=== PATIENT | male | born 1995 ===

== ENCOUNTER 2024-09-05 11:21 | Outpatient (AMB) | payer OTHER, SELFPAY ==
--- NOTE | 2024-09-05 11:27 | MHC.PC.OV ---
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 He notes that he does not recall name or practice of his former PCP and does not recall his last visit. The patient is a 29-year-old male presenting with chronic pain localized to the right lower back and right waistline, under the abdomen, persisting for approximately one month. Historically, this pain has been present intermittently for several years, with periods of remission lasting about three months. No significant abnormalities were revealed by a prior CT scan. The pain does not appear to be connected to acute injuries and feels alleviated by physical activity, although current limitations due to lifestyle changes with a have reduced exercise frequency. The patient reports that prior interventions with muscle relaxers were ineffective. The symptoms have had a chronic nature, with an exacerbation over the past month. He has PMH of hypothyroidism, depression, chronic pain, nearsightedness, and childhood asthma. Surgical History - None FMH - Mom: HLD - Dad: Alcohol abuse, HTN, HLD, MDD - MGF: Thyroid disorder - PGM: Unknown cancer Social History - Currently undergoing life changes with a new baby, impacting sleep and exercise routine. - Diet described as not particularly healthy. - Alcohol consumption is reported as consuming a beer approximately once a week. - No history of smoking or recreational drug use. - Engages in therapy for mental health support, attending sessions once a week. - Regularly utilizes hand lotion, attributed to frequent hand washing related to parenting duties. - Despite being nearsighted, the last eye exam was approximately five years ago. Health Maintenance - Last dental visit within a week. - Tetanus vaccination discussed, likely overdue, with plans for administration as necessary. - Influenza vaccination discussed but not previously received for the current season; plan to administer. - Last eye exam was about 5 years ago. Referred for routine eye examination due to overdue status and history of being nearsighted. - Suggested dietary and nutritional consultation for weight management. - Encouraged increased physical activity. [facility] Medical History (Updated 09/05/24 @ 12:31 by Miguelina dAen CNP) Depression H/O thyroid disease Asthma Family History (Updated 09/05/24 @ 12:55 by Miriam Gray) Paternal Uncle Alcohol abuse Father Mental illness in member of household High blood pressure High cholesterol MDD (major depressive disorder) Diabetes Mother High cholesterol Maternal Grandfather Thyroid disorder Paternal Grandmother Cancer Social History Housing: Apartment Patient Tobacco Use Status: Never used Tobacco e-Cigarette/Vaping Use: Never Used Second Hand Smoke Exposure: No service: No Current occupational status: employed 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 1. Little interest or pleasure in doing things: several days 2. Feeling down, depressed, or hopeless: several days 3. Trouble falling or staying asleep, or sleeping too much: several days 4. Feeling tired or having little energy: several days 5. Poor appetite or overeating: nearly every day 6. Feeling bad about yourself - or that you are a failure or have let yourself or your family down: more than half the days 7. Trouble concentrating on things, such as reading the newspaper or watching television: several days 8. Moving or speaking so slowly that other people could have noticed. Or the opposite - being so fidgety or restless that you have been moving around a lot more than usual: not at all 9. Thoughts that you would be better off or of hurting yourself in some way: not at all Total score: 10 Depression Screening Interpretation: Positive Depression Screening Follow-up: Existing condition and In treatment Depression Screening Done: Yes 83755 - PHQ-9 Billing: Yes Source: Developed by Drs. Tian Garza, Adelita Olmedo, Frank Haile and colleagues, with an educational addi from [employer]. Thrive Questionnaire Date Thrive assessed: 09/05/24 I am a: Patient What is your living situation today?: I have a steady place to live Within the past 12 months, did the food you bought not last and you didn't have the money to get more?: Never true Within the past 12 months, did you worry whether your food would run out before you got money to buy more?: Never true Do you have trouble paying for medicines?: No Do you have trouble getting transportation to medical appointments?: No Do you have trouble paying your heating and electricity bill?: No Do you have trouble taking care of your child, family member or friend?: No Do you have trouble with day-to-day activities such as bathing, preparing meals, shopping, managing finances, etc.?: No Are you currently unemployed and looking for a job?: No Are you interested in more education?: Yes Please select the resources that you would like help with: None Currently or been in a relationship where the following occur: No concerns reported THRIVE Score: 0 AUDIT C Alcohol Use Questionnaire (AUDIT-C) 1. How often do you have a drink containing alcohol?: 2-4 times a month 2. How many drinks containing alcohol do you have on a typical day when you are drinking?: 1 or 2 3. How often do you have six or more drinks on one occasion?: Never Total Score: 2 Score Reviewed/Action Taken: Yes ONEIL-7 AMB Questionnaire ONEIL-7 Date ONEIL - 7 assessed: 09/05/24 Feeling nervous, anxious, or on edge: 1 = Several days Not being able to stop or control worryin = Several days Worrying too much about different things: 1 = Several days Trouble relaxin = Several days Being so restless that it is hard to sit still: 0 = Not at all Becoming easily annoyed or irritable: 1 = Several days Feeling afraid as if something awful might happen: 2 = More than half the days Total ONEIL-7 score (0-4 normal; 5-9 mild; 10-14 moderate; 15-21 severe): 7 Source: Developed by Drs. Tian Garza, Adelita Olmedo, Frank Haile and colleagues, with an educational addi from [employer]. ONEIL-7 Assessment Billing ONEIL-7 Assessment Tool: ONEIL-7 Assessment 56354 ACT Questionnaire In the past 4 weeks, how much of the time did your asthma keep you from getting as much done at work, school or at home?: None of the time During the past 4 weeks, how often have you had shortness of breath?: 1-2 times a week During the past 4 weeks, how often did your asthma symptoms wake you up at night or earlier than usual in the morning?: Not at all During the past 4 weeks, how often have you had to use your rescue inhaler or nebulizer medication?: Not at all How would you rate your asthma control during the past 4 weeks?: Completely controlled Score: 24 Review of Systems Const Details: Denies chills, Denies fatigue, Denies fever(s), Denies headache(s) and Denies weakness HEENT Denies change in vision, Denies dizziness, Denies headache(s), Denies hearing loss, Denies nasal congestion, Denies sinus pain, Denies sinus pressure and Denies sore throat Card Denies chest pain, Denies lightheadedness, Denies dyspnea and Denies other (palpitations) Resp Denies cough, Denies dyspnea and Denies wheezing GI Denies abdominal pain, Denies melena, Denies hematochezia, Denies change in bowel habits, Denies dyspepsia and Denies nausea Denies hematuria and Denies dysuria Musc Reports persistent localized chronic pain in the right lower back and waistline .Denies abnormal gait, Denies numbness and Denies tingling Skin/Breast Reports severe dry skin with itchiness, primarily affecting the hands, Denies rash, Denies unusual bruising and Denies wounds Neuro Denies abnormal gait, Denies dizziness, Denies headache(s), Denies memory loss, Denies numbness, Denies Sensory deficit (Neuro), Denies tingling and Denies weakness Psych Denies anxiety, Denies depression and Denies memory loss Endo Denies cold intolerance, Denies fatigue, Denies heat intolerance, Denies polydipsia and Denies polyuria Pastor/Lymph Denies easy bleeding and Denies easy bruising Aller/Immun Denies wheezing Physical exam (Primary Care) Vital Signs: Last Vital Signs Temp 97.3 F 09/05/24 11:35 Pulse 63 09/05/24 11:35 Resp 16 09/05/24 11:35 BP 135/64 09/05/24 11:35 Pulse Ox 98 09/05/24 11:35 Oxygen Delivery Method Room Air 09/05/24 11:35 BMI result Body Mass Index 34.2 Tobacco/Smoking Status: Tobacco use Status Tobacco use date assessed 09/05/24 09/05/24 11:44 Patient Tobacco Use Status Never used Tobacco 09/05/24 11:44 e-Cigarette/Vaping Use Never Used 09/05/24 11:44 PHQ-9: PHQ-9 Score PHQ-9: Total score 10 09/05/24 12:56 Depression Screening Interpretation: Positive Depression Screening Follow-up: Existing condition and In treatment Thrive Assessment: Date of Thrive Assessment Date Thrive assessed 09/05/24 09/05/24 11:30 Currently or been in a relationship where the following occur: No concerns reported Const Other: General: no acute distress, well developed, alert and awake Nutritional Appearance: well nourished Orientation/consciousness: patient oriented x3 HENMT Head: Yes normocephalic and Yes atraumatic Ears: hearing grossly normal bilaterally and TM's normal bilaterally General nose exam: Normal external nose present and Normal nares present Mouth: Normal oral and palatal mucosa present and moist mucous membranes Teeth and gingiva: dentition normal Throat: Yes oropharynx normal Eyes Pupils: Equal, round and reactive pupils present and Pupil accommodation reflex normal EOM: EOMs intact bilaterally Neck Neck: Yes normal visual inspection, Yes no lymphadenopathy and Yes trachea midline Thyroid: Thyroid normal Carotids: no bruits Lymphatic: no lymphadenopathy noted Chest Chest palpation & inspection: normal inspection of the chest Resp Effort & Inspection: normal respiratory effort Auscultation: clear to auscultation bilaterally Cardio Rate: regular rate Rhythm: regular rhythm Heart sounds: S1 normal heart sound present, S2 normal heart sound present, no gallops, no murmurs and no rubs Bruits: no abdominal aortic bruits and no carotid bruits GI Palpation (GI): No Abdominal aortic bruit present, Soft to palpation, nontender, No hepatosplenomegaly present and No Rebound tenderness present Auscultation: normal bowel sounds General: Yes no CVA tenderness Back/Spine/Pelvis Back: no CVA tenderness Cervical Spine: cervical ROM normal and No Cervical spine tenderness Thoracic/Lumbar Spine: thoraco-lumbar ROM normal, No pain with thoraco-lumbar ROM, No thoracic spinal tenderness and No lumbar spinal tenderness General: No tenderness noted on palpation of right lower back and abdomen, absence of hernia, and no reported pain upon examination maneuvers. Skin General: warm and dry. Normal skin color. Normal skin turgor Lesions: no lesions Rashes: no rashes Trauma: no lacerations or abrasions Wounds: no wounds Nails: normal Neuro General: patient oriented x3, gait normal and CN's II-XI intact bilaterally Cranial nerves: Yes Equal, round and reactive pupils present Cognition (Neuro): normal cognition Gait exam (Neuro): Normal gait present Motor exam (neuro): 5/5 motor strength present throughout Sensory Exam: No Sensory deficit (Neuro) Deep tendon reflexes (DTR's): Right patellar reflex intensity grade: 2+ and Left patellar reflex intensity grade: 2+ Extrem General: Yes normal to inspection, No edema and No calf tenderness Psych Appearance: grossly normal Affect: normal affect Attitude: cooperative Thought process: Normal thought process present Office Procedures Flu Questionnaire Does the patient have a severe egg allergy?: No Does the patient have severe life threatening allergies?: No Does the patient have a fever or illness today?: No Has the patient ever had Guillain-[place] Syndrome?: No Has the patient ever had any past reaction to a flu shot?: Yes Comment: Patient stated his last flu shot gave him the flu and he had to be hospitalized. Immunizations Fluarix Triv [id number] (PF) 45 mcg (15 mcg x 3)/0.5 mL IM syringe Performing Provider: Miguelina Aden CNP Performing Location: [facility] Administered by: Naomi Hernandez RN on 09/05/24 12:31 Dose Route Admin Location Dispensed Lot Number Expiration Date [facility] Chicken Dresser 0.5 mL IM Right Deltoid 0.5 mL [id number] 04/09/25 [id number] [employer] VIS Given Date VIS Provided VIS Publication Date 09/05/24 Single Vaccine 21 Eligibility Eligibility Date Funding Source Not [facility] Eligible 09/05/24 Private Boostrix Tdap 2.5 Lf unit-8 mcg-5 Lf/0.5 mL intramuscular syringe Performing Provider: Miguelina Aden CNP Performing Location: [facility] Administered by: Naomi Hernandez RN on 09/05/24 12:31 Dose Route Admin Location Dispensed Lot Number Expiration Date [employer] Chicken Dresser 0.5 mL IM Left Deltoid 0.5 mL [id number] 07/08/25 [id number] [employer] VIS Given Date VIS Provided VIS Publication Date 09/05/24 Single Vaccine 21 Eligibility Eligibility Date Funding Source Not [facility] Eligible 09/05/24 Private Coding Level of Care Code New Pt Level 3 (45962) New Pt Prev Care 18-39yr(04883 Diagnoses Normal physical examination, routine Z00.00 Chronic pain G89.29 Depression F32.A Eye exam, routine Z01.00 Obesity (BMI 30-39.9) E66.9 Hypothyroidism E03.9 Dry skin L85.3 Preventative health care Z00.00 Laboratory tests ordered as part of a complete physical exam (CPE) Z00.00 Additional Codes ONEIL-7 Assessment Billing - ONEIL-7 Assessment Tool: ONEIL-7 Assessment 48103 ([id number]) PHQ-9 - 71168 - PHQ-9 Billing: Yes ([id number]) Assessment & Plan Assessment & Plan (1) Normal physical examination, routine: Code(s): Z00.00 - Encounter for general adult medical examination without abnormal findings Category: Medical Plan: No significant functional limitation noted. (2) Chronic pain: Code(s): G89.29 - Other chronic pain Category: Medical Plan: Advise use of yiee-eme-lhgkkgb analgesics such as acetaminophen 650 mg or ibuprofen 600 mg every eight hours as needed. Encouraged warm or cold compresses. If symptoms persist or worsen, consider further diagnostic imaging or referral. (3) Depression: Code(s): F32.A - Depression, unspecified Category: Medical Plan: Never had pharmacotherapy for this and declines this treatment regimen. Continue routine therapy sessions as they appear effective. Monitor for any escalation in symptoms. (4) Eye exam, routine: Code(s): Z01.00 - Encounter for examination of eyes and vision without abnormal findings Category: Medical (5) Obesity (BMI 30-39.9): Code(s): E66.9 - Obesity, unspecified Category: Medical Plan: Healthy diet and routine exercise encouraged. Referred to dietitian. (6) Hypothyroidism: Code(s): E03.9 - Hypothyroidism, unspecified Category: Medical Plan: Continue current treatment regiment. Assess thyroid levels through upcoming lab work. (7) Dry skin: Code(s): L85.3 - Xerosis cutis Category: Medical Plan: Apply emollient-based lotion endorsed by the patient regularly, and utilize xixw-xor-dodmpuh hydrocortisone as needed for any exacerbation of dry and itchy symptoms to hands. (8) Preventative health care: Code(s): Z00.00 - Encounter for general adult medical examination without abnormal findings Category: Medical Plan: Administer tetanus booster and influenza vaccine as discussed. Follow up on eye health with recommended examination. (9) Laboratory tests ordered as part of a complete physical exam (CPE): Code(s): Z00.00 - Encounter for general adult medical examination without abnormal findings Category: Medical Plan: Fasting labs ordered as part of a complete physical exam. Advised to fast for at least 10 hours before getting labs drawn. May drink water Verbalized understanding and agreed with treatment plan. Plan During the consultation, we discussed the chronic nature of the patient's lower back and waistline pain, its alleviation through exercise, and the ineffectiveness of previous treatments, such as muscle relaxers. For management and symptomatic relief, I recommended using analgesics and incorporating physical activity as feasible. Pain management was tailored, considering previous evaluations and the lack of acute findings on the CT scan. We addressed the patient's mental health management, reinforcing the value of their routine therapy, and discussed potential interventions should symptoms change. Preventive vaccines were outlined, and the benefits of adherence were emphasized, particularly in light of overdue schedules. Referrals for dietary insight and ophthalmoscopic evaluations were planned, emphasizing their significance in the patient's comprehensive health upkeep. We discussed the implications of the patient's health status, suggesting appropriate lifestyle modifications for optimal health outcomes. Orders: Orders Influenza [id number] Immunization Today Z23 - Encounter for immunization TDaP Immunization Today Z23 - Encounter for immunization Complete Blood Count Auto Diff Today Z00.00 - Encounter for general adult medical examination without abnormal findings Comprehensive [place]. Panel Fast Today Z00.00 - Encounter for general adult medical examination without abnormal findings Lipid Panel Today Z00.00 - Encounter for general adult medical examination without abnormal findings TSH reflex Free T4 Today Z00.00 - Encounter for general adult medical examination without abnormal findings UA CC w/rflx Micro + Cult Today Z00.00 - Encounter for general adult medical examination without abnormal findings Referrals Nutrition/Dietitian Referral E66.9 - Obesity, unspecified Ophthalmology Referral Z01.00 - Encounter for examination of eyes and vision without abnormal findings Patient Instructions: - Take acetaminophen or ibuprofen as needed for pain relief, following package guidelines. - Apply lotion regularly to maintain skin hydration; use hydrocortisone for itching. - Schedule and attend the recommended eye examination. - Attend follow-up appointments to review lab results and reassess management plans. - Increase physical activity, as it helps alleviate your symptoms. - Adhere to therapy sessions and observe any changes in mental health symptoms. - Receive tetanus and influenza vaccinations. - Consider dietary consultation and incorporate healthier food choices. Patient was informed and verbally consented to the use of an ambient scribe for clinic note documentation during this visit.
[2024-09-05 11:35] VITALS: BP 135/64; PULSE 63; RESP 16; TEMP 36.3; O2SAT 98; BMI 34.2
== END 2024-09-05 12:30 | disposition home or self-care (01) ==
PROVIDERS: Visit Provider Nurse Practitioner Family
DX: Z00.00 Encounter for general adult medical examination without abnormal findings (principal); G89.29 Other chronic pain; F32.A Depression, unspecified; Z68.34 Body mass index [BMI] 34.0-34.9, adult; E66.9 Obesity, unspecified; E03.9 Hypothyroidism, unspecified; L85.3 Xerosis cutis

== ENCOUNTER → 2024-09-05 11:21 | Outpatient (BNVA) | payer OTHER, SELFPAY | PROVIDERS: Visit Provider Nurse Practitioner Family | DX: Z00.00 Encounter for general adult medical examination without abnormal findings (principal); Z23 Encounter for immunization; M54.50 Low back pain, unspecified; G89.29 Other chronic pain; F32.A Depression, unspecified; E66.9 Obesity, unspecified; E03.9 Hypothyroidism, unspecified; L85.3 Xerosis cutis | CPT/HCPCS: 90471; 90472; 90656; 90715; 96127; 96160 ==

== ENCOUNTER 2024-09-19 14:50 | Outpatient (REF) | payer OTHER, SELFPAY ==
[2024-09-19 17:41] LABS: MANUAL DIFF FLAG NO
[2024-09-19 17:43] LABS: Basophils Percent Auto 0.5 % (0-2); Eosinophils Absolute Auto 0.2 X10*3/uL (0.0-0.4); Hematocrit 41.7 % (42.0-52.0); Hemoglobin 14.7 g/dl (14.0-18.0); Imm Gran Abs Auto 0.02 X10*3/uL (0.00-0.03); Imm Gran Pct Auto 0.3 % (0.0-0.4); Lymphocytes Absolute Auto 1.7 X10*3/uL (1.2-4.9); Lymphocytes Percent Auto 28.4 % (20-40); Mean Corpuscular HGB Conc 35.3 g/dl (31.0-36.0); Mean Corpuscular Hemoglobin 28.2 pg (27.0-33.0); Monocytes Absolute Auto 0.5 X10*3/uL (0.1-1.2); Monocytes Percent Auto 7.6 % (2-11); Neutrophils Absolute Auto 3.6 x10*3/uL (2.0-8.3); Neutrophils Percent Auto 59.2 % (45-73); Platelet Count 270 X10*3/uL (160-400); Red Blood Count 5.21 X10*6/uL (4.60-5.80); Red Cell Distribution Width 12.1 % (11.0-16.0); White Blood Count 6.1 X10*3/uL (4.8-10.8)
[2024-09-19 18:05] LABS: Alanine Aminotransferase 46 U/L (0-40); Albumin Level 4.4 g/dL (3.5-5.0); Alkaline Phosphatase 63 U/L (39-117); Anion Gap 12 (12-20); Aspartate Amino Transferase 27 U/L (5-37); Bilirubin Total 0.4 mg/dL (0.0-1.0); Blood Urea Nitrogen 15 mg/dL (9-16); Calcium 9.3 mg/dL (8.4-10.2); Carbon Dioxide 28 mmol/L (22-29); Chloride 104 mmol/L (96-108); Cholesterol 197 mg/dL (<200); Estimated Glomerular Filt Rate > 60; Glucose Fasting 90 mg/dL (60-99); HDL Cholesterol 39 mg/dL (>40); LDL Cholesterol Calculated 138 mg/dL (<100); Potassium 4.1 mmol/L (3.3-5.1); Sodium 140 mmol/L (135-145); Total Protein 7.6 g/dL (6.5-8.0); Triglycerides 101 mg/dL (<150)
[2024-09-19 18:19] LABS: TSH reflex Free T4 3.87 uIU/mL (0.32-4.0)
[2024-09-19 18:21] LABS: Appearance Urine Clear; Color Urine Yellow; Glucose Urine UA Negative (Negative); Leukocyte Esterase Urine Negative (Negative); Nitrite Urine Negative (Negative); Urine Blood Negative (Negative); Urine Ketones Negative (Negative); Urine Protein Negative (Neg-Trace)
== END 2024-09-19 14:51 | disposition home or self-care (01) ==
LOC: HO.WFDLDS 14:50
PROVIDERS: Visit Provider Nurse Practitioner Family
DX: Z00.00 Encounter for general adult medical examination without abnormal findings (principal)
CPT/HCPCS: 36415; 80053; 80061; 81003; 84443; 85025

== ENCOUNTER → 2024-09-20 12:40 | Outpatient (AMB) | payer OTHER, SELFPAY ==
--- NOTE | 2024-09-20 12:37 | A.OFFPC_ITS ---
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 He admits to taking levothyroxine 88 mcg daily without adverse reactions. He offers no complaints and denies acute symptoms at this time. [facility] Medical History (Updated 09/20/24 @ 13:20 by Miguelina Aden CNP) Depression H/O thyroid disease Asthma Family History (Updated 09/05/24 @ 12:55 by Miriam Gray) Paternal Uncle Alcohol abuse Father Mental illness in member of household High blood pressure High cholesterol MDD (major depressive disorder) Diabetes Mother High cholesterol Maternal Grandfather Thyroid disorder Paternal Grandmother Cancer Social History Housing: Apartment Patient Tobacco Use Status: Never used Tobacco e-Cigarette/Vaping Use: Never Used Second Hand Smoke Exposure: No service: No Current occupational status: employed 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 Tian Garza, Adelita Olmedo, Frank Haile and colleagues, with an educational addi from [employer]. Review of Systems Const Details: Const Denies chills, Denies fatigue, Denies fever(s), Denies headache(s) and Denies weakness ENT Denies dizziness and Denies headache(s) Card Denies chest pain, Denies lightheadedness, Denies dyspnea and Denies other (Palpitations) Resp Denies cough, Denies dyspnea, Denies wheezing and Denies other ( shortness of breath) GI Denies abdominal pain, Denies melena, Denies hematochezia, Denies change in bowel habits, Denies dyspepsia and Denies nausea Denies hematuria and Denies dysuria Musc Denies abnormal gait, Denies myalgias, Denies arthralgias, Denies numbness and Denies tingling Skin/Breast Denies rash, Denies unusual bruising and Denies wounds Neuro Denies abnormal gait, Denies dizziness, Denies headache(s), Denies memory loss, Denies numbness, Denies Sensory deficit (Neuro), Denies tingling and Denies weakness Psych Denies anxiety, Denies depression, Denies memory loss Endo Denies cold intolerance, Denies fatigue, Denies heat intolerance, Denies polydipsia and Denies polyuria Aller/Immun Denies wheezing Physical exam (Primary Care) Tobacco/Smoking Status: Tobacco use Status Tobacco use date assessed 09/05/24 12 12:39 Patient Tobacco Use Status Never used Tobacco 09/20/24 12:39 e-Cigarette/Vaping Use Never Used 09/20/24 12:39 Thrive Assessment: Date of Thrive Assessment Date Thrive assessed 09/05/24 12 12:39 Const Other: Telehealth visit. No physical exam. Telehealth Telehealth Telehealth Platform: Telephone Location of provider rendering services: practice address Location of patient: address on file Patient Identification confirmed using: Name, : Yes Telehealth method: voice only Patient verbally consented to treatment: Yes Patient verbally consented to billing insurance company: Yes Patient informed of any privacy concerns related to visit: Yes Coding Level of Care Code Tele Est Pt Level 3 (03275) Diagnoses Dyslipidemia E78.5 Elevated ALT measurement R74.01 Hypothyroidism E03.9 Time Spent (min) 15 Assessment & Plan Assessment & Plan (1) Dyslipidemia: Code(s): E78.5 - Hyperlipidemia, unspecified Category: Medical Plan: Recent lab results reviewed with the patient. LDL is slightly elevated, 138; HDL is slightly low, 39. Advised to limit foods high in saturated fat and avoid foods high in trans fat. Routine exercise encouraged. Will recheck lipid panel levels; advised to fast for 10-12 hours, may drink water, and get blood work done before his next visit. Follow-up in 3 months or sooner with symptoms or concerns. Verbalized understanding and agreed with the treatment plan. (2) Elevated ALT measurement: Code(s): R74.01 - Elevation of levels of liver transaminase levels Category: Medical Plan: Recent ALT level was slightly elevated, 46. Likely fatty liver deposit secondary to obesity. Weight management, including healthy diet and routine exercise encouraged. Will recheck lipid panel and make changes as needed. Verbalized understanding and agreed with the treatment plan. (3) Hypothyroidism: Code(s): E03.9 - Hypothyroidism, unspecified Category: Medical Plan: Recent TSH level was normal. Continue current treatment regimen. Levothyroxine refill sent to the pharmacy. Will recheck TSH/T4 levels in 3 months. Verbalized understanding and agreed with the plan. Orders: Orders Lipid Panel 3 Months E78.5 - Hyperlipidemia, unspecified Liver Panel Today R74.01 - Elevation of levels of liver transaminase levels TSH reflex Free T4 3 Months E03.9 - Hypothyroidism, unspecified Medications: Changed From levothyroxine 88 mcg PO DAILY To levothyroxine 88 mcg PO DAILY 30 days 30 tabs 3RF
== END ==
LOC: HO.HMCFM 12:40
PROVIDERS: PCP Nurse Practitioner Family; Visit Provider Nurse Practitioner Family
DX: E78.5 Hyperlipidemia, unspecified (principal); R74.01 Elevation of levels of liver transaminase levels; E03.9 Hypothyroidism, unspecified

== ENCOUNTER 2025-03-19 12:48 | Outpatient (REF) | payer OTHER, SELFPAY ==
[2025-03-19 15:10] LABS: Alanine Aminotransferase 44 U/L (0-40); Albumin Level 4.6 g/dL (3.5-5.0); Alkaline Phosphatase 61 U/L (39-117); Aspartate Amino Transferase 28 U/L (5-37); Bilirubin Direct 0.2 mg/dL (0.0-0.5); Bilirubin Total 0.7 mg/dL (0.0-1.0); Cholesterol 194 mg/dL (<200); HDL Cholesterol 35 mg/dL (>40); LDL Cholesterol Calculated 129 mg/dL (<100); Total Protein 7.3 g/dL (6.5-8.0); Triglycerides 154 mg/dL (<150)
== END 2025-03-19 12:49 | disposition home or self-care (01) ==
LOC: HO.WFDLDS 12:48
PROVIDERS: Visit Provider Nurse Practitioner Family
DX: E03.9 Hypothyroidism, unspecified (principal); R74.01 Elevation of levels of liver transaminase levels; E78.5 Hyperlipidemia, unspecified
CPT/HCPCS: 36415; 80061; 80076; 84443

== ENCOUNTER 2025-03-20 11:47 | Outpatient (AMB) | payer OTHER, SELFPAY ==
--- NOTE | 2025-03-20 11:49 | A.OFFPC_ITS ---
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 Allergies No Known Allergies Allergy (Verified 03/20/25 11:57) Medication List - Last Reconciled 03/20/25 by Miguelina Aden CNP levothyroxine 88 mcg PO DAILY 30 days Tobacco use date assessed: 03/20/25 Dental Screening Dental Screen Date: 03/20/25 Did you have a dental visit in the last 12 months?: Yes Did you have a dental problem in the last 6 months where you did not have access to dental care?: No Was dental information given to patient?: Patient has dentist HPI HPI Comments History of Present Illness Details 30-year-old male presents for dyslipidem ia, hypothyroidism, and elevated ALT follow-up. He admits to taking levothyroxine as prescribed without adverse reactions. He notes that he has been consuming significant amount of cheese. He has not been exercising. He reports experiencing anxiety and depressive symptoms which has progressively worsened in the past 6 months. He states that his symptoms started after his 9-month-old daughter's mother developed depression and not able to be alone with the baby. 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 He does not have time to do things for himself, including exercise. He denies SI/HI. He is not interested in psychotropic medications for his symptoms. He had psychotherapy in the past and requests therapy at this time. [facility] Medical History (Updated 03/20/25 @ 12:16 by Miguelina Aden CNP) Depression H/O thyroid disease Asthma Family History (Updated 09/05/24 @ 12:55 by Miriam Gray MA) Paternal Uncle Alcohol abuse Father Mental illness in member of household High blood pressure High cholesterol MDD (major depressive disorder) Diabetes Mother High cholesterol Maternal Grandfather Thyroid disorder Paternal Grandmother Cancer Social History Housing: Apartment Patient Tobacco Use Status: Never used Tobacco e-Cigarette/Vaping Use: Never Used Second Hand Smoke Exposure: No service: No Current occupational status: employed 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 1. Little interest or pleasure in doing things: several days 2. Feeling down, depressed, or hopeless: several days 3. Trouble falling or staying asleep, or sleeping too much: nearly every day 4. Feeling tired or having little energy: several days 5. Poor appetite or overeating: nearly every day 6. Feeling bad about yourself - or that you are a failure or have let yourself or your family down: nearly every day 7. Trouble concentrating on things, such as reading the newspaper or watching television: several days 8. Moving or speaking so slowly that other people could have noticed. Or the opposite - being so fidgety or restless that you have been moving around a lot more than usual: not at all 9. Thoughts that you would be better off or of hurting yourself in some way: not at all Total score: 13 Depression Screening Interpretation: Positive Depression Screening Follow-up: Community Mental Health Worker F/U Depression Screening Done: Yes Source: Developed by Drs. Tian Garza, Adelita Olmedo, Frank Haile and colleagues, with an educational addi from [employer]. Thrive Questionnaire Date Thrive assessed: 09/05/24 I am a: Patient What is your living situation today?: I have a steady place to live Within the past 12 months, did the food you bought not last and you didn't have the money to get more?: Never true Within the past 12 months, did you worry whether your food would run out before you got money to buy more?: Never true Do you have trouble paying for medicines?: No Do you have trouble getting transportation to medical appointments?: No Do you have trouble paying your heating and electricity bill?: No Do you have trouble taking care of your child, family member or friend?: No Do you have trouble with day-to-day activities such as bathing, preparing meals, shopping, managing finances, etc.?: No Are you currently unemployed and looking for a job?: I choose not to answer this question Are you interested in more education?: No Please select the resources that you would like help with: None Currently or been in a relationship where the following occur: I choose not to answer THRIVE Score: 0 AUDIT C Alcohol Use Questionnaire (AUDIT-C) 1. How often do you have a drink containing alcohol?: 2-4 times a month 2. How many drinks containing alcohol do you have on a typical day when you are drinking?: 1 or 2 3. How often do you have six or more drinks on one occasion?: Never Total Score: 2 ONEIL-7 AMB Questionnaire ONEIL-7 Date ONEIL - 7 assessed: 09/05/24 Feeling nervous, anxious, or on edge: 3 = Nearly every day Not being able to stop or control worryin = Nearly every day Worrying too much about different things: 2 = More than half the days Trouble relaxin = Several days Being so restless that it is hard to sit still: 0 = Not at all Becoming easily annoyed or irritable: 1 = Several days Feeling afraid as if something awful might happen: 2 = More than half the days Total ONEIL-7 score (0-4 normal; 5-9 mild; 10-14 moderate; 15-21 severe): 12 Source: Developed by Drs. Tian Garza, Adelita Olmedo, Frank Haile and colleagues, with an educational addi from [employer]. Review of Systems Const Details: Const Denies chills, Denies fatigue, Denies fever(s), Denies headache(s) and Denies weakness ENT Denies dizziness and Denies headache(s) Card Denies chest pain, Denies lightheadedness, Denies dyspnea and Denies other (Palpitations) Resp Denies cough, Denies dyspnea, Denies wheezing and Denies other ( shortness of breath) GI Denies abdominal pain, Denies melena, Denies hematochezia, Denies change in bowel habits, Denies dyspepsia and Denies nausea Denies hematuria and Denies dysuria Musc Denies abnormal gait, Denies myalgias, Denies arthralgias, Denies numbness and Denies tingling Skin/Breast Denies rash, Denies unusual bruising and Denies wounds Neuro Denies abnormal gait, Denies dizziness, Denies headache(s), Denies memory loss, Denies numbness, Denies Sensory deficit (Neuro), Denies tingling and Denies weakness Psych Denies anxiety, Denies depression, Denies memory loss Endo Denies cold intolerance, Denies fatigue, Denies heat intolerance, Denies polydipsia and Denies polyuria Aller/Immun Denies wheezing Physical exam (Primary Care) Tobacco/Smoking Status: Tobacco use Status Tobacco use date assessed 09/05/24 09/20/24 12:39 Patient Tobacco Use Status Never used Tobacco 09/20/24 12:39 e-Cigarette/Vaping Use Never Used 09/20/24 12:39 Depression Screening Interpretation: Positive Depression Screening Follow-up: Community Mental Health Worker F/U Thrive Assessment: Date of Thrive Assessment Date Thrive assessed 09/05/24 09/20/24 12:39 Currently or been in a relationship where the following occur: I choose not to answer Const Other: General: no acute distress and well developed Nutritional Appearance: well nourished Orientation/consciousness: patient oriented x3 HENMT Head: Yes normocephalic and Yes atraumatic Eyes General: appearance normal, both eyes and all related structures Pupils: Equal, round and reactive pupils present EOM: EOMs intact bilaterally Resp Effort & Inspection: normal respiratory effort Auscultation: clear to auscultation bilaterally Cardio Rate: regular rate Rhythm: regular rhythm Heart sounds: S1 normal heart sound present, S2 normal heart sound present, no gallops, no murmurs and no rubs GI Palpation (GI): No Abdominal aortic bruit present, Soft to palpation, nontender, No hepatosplenomegaly present and No Rebound tenderness present Auscultation: normal bowel sounds General: Yes no CVA tenderness Back/Spine/Pelvis Back: no CVA tenderness Cervical Spine: cervical ROM normal and No Cervical spine tenderness Thoracic/Lumbar Spine: thoraco-lumbar ROM normal, No pain with thoraco-lumbar ROM, No thoracic spinal tenderness and No lumbar spinal tenderness Extrem General: Yes normal to inspection, No edema and No calf tenderness Skin General: warm and dry. Normal skin color. Normal skin turgor Neuro General: patient oriented x3, gait normal and no focal neuro deficit Cranial nerves: Yes Equal, round and reactive pupils present Cognition (Neuro): normal cognition Gait exam (Neuro): Normal gait present Sensory Exam: No Sensory deficit (Neuro) Psych Appearance: grossly normal Affect: normal affect Attitude: cooperative Thought process: Normal thought process present Coding Level of Care Code Est Pt Level 4 (77758) Complex EM visit Add On G2211 Diagnoses Hypothyroidism E03.9 Dyslipidemia E78.5 Elevated ALT measurement R74.01 Adjustment disorder F43.20 Assessment & Plan Assessment & Plan (1) Hypothyroidism: Code(s): E03.9 - Hypothyroidism, unspecified Category: Medical Plan: Recent TSH level is normal. Continue to take levothyroxine 88 mcg daily. Will monitor TSH/T4 every 6-12 months. Verbalized understanding and agreed with the plan. (2) Dyslipidemia: Code(s): E78.5 - Hyperlipidemia, unspecified Category: Medical Plan: Recent triglyceride level is slightly elevated, 154 from 101, LDL level is slightly elevated, 129 from 138, HDL level is low, 35 from 39. Advised to limit foods high in saturated fat and avoid foods high in trans fat. Routine exercise encouraged. Fast for 10-12 hours, may drink water, perform lipid panel blood work 2-3 days before next visit. Follow-up for a telehealth visit in 2 months. Return sooner with symptoms or concerns. Verbalized understanding and agreed with the plan. (3) Elevated ALT measurement: Code(s): R74.01 - Elevation of levels of liver transaminase levels Category: Medical Plan: Recent ALT level is slightly elevated, 44 from 46. Likely fatty liver deposits. Weight loss and healthy diet, including low-fat encouraged. Will monitor liver panel periodically or if presents with related symptoms or concerns. Verbalized understanding and agreed with the plan. (4) Adjustment disorder: Code(s): F43.20 - Adjustment disorder, unspecified Category: Medical Plan: He reports experiencing anxiety and depressive symptoms which has progressively worsened in the past 6 months. He states that his symptoms started after his 9-month-old daughter's mother developed depression and not able to be alone with the baby. 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 He does not have time to do things for himself, including exercise. He denies SI/HI. He is not interested in psychotropic medications for his symptoms. He had psychotherapy in the past and requests therapy at this time. PHQ-9 and ONEIL-7 scores revealed moderate depression and anxiety. Routine exercise encouraged. He met with the [facility] who will connect him to a therapist. Follow-up for telehealth visit in 2 months. Return sooner with worsening or new symptoms. Verbalized understanding and agreed with the plan. Orders: Orders Lipid Panel 2 Months E78.5 - Hyperlipidemia, unspecified
[2025-03-20 11:53] VITALS: BP 125/58; PULSE 70; RESP 16; TEMP 36.7; O2SAT 98; BMI 33.9
== END 2025-03-20 12:23 | disposition home or self-care (01) ==
LOC: HO.HMCFM 11:47
PROVIDERS: PCP Nurse Practitioner Family; Visit Provider Nurse Practitioner Family
DX: E03.9 Hypothyroidism, unspecified (principal); E78.5 Hyperlipidemia, unspecified; R74.01 Elevation of levels of liver transaminase levels; F43.20 Adjustment disorder, unspecified

== ENCOUNTER → 2025-03-20 11:47 | Outpatient (BNVA) | payer OTHER, SELFPAY | PROVIDERS: PCP Nurse Practitioner Family; Visit Provider Nurse Practitioner Family | DX: R74.01 Elevation of levels of liver transaminase levels (principal); F32.A Depression, unspecified; F41.9 Anxiety disorder, unspecified; E78.5 Hyperlipidemia, unspecified; E03.9 Hypothyroidism, unspecified; F43.20 Adjustment disorder, unspecified; Z71.89 Other specified counseling; Z79.899 Other long term (current) drug therapy | CPT/HCPCS: 99212 ==

== ENCOUNTER 2025-06-27 10:16 | Outpatient (REF) | payer OTHER, SELFPAY ==
[2025-06-27 11:36] LABS: Cholesterol 191 mg/dL (<200); HDL Cholesterol 36 mg/dL (>40); Triglycerides 142 mg/dL (<150)
== END 2025-06-27 10:17 | disposition home or self-care (01) ==
LOC: HO.WFDLDS 10:16
PROVIDERS: Visit Provider Nurse Practitioner Family
DX: E78.5 Hyperlipidemia, unspecified (principal)
CPT/HCPCS: 36415; 80061

== ENCOUNTER 2025-06-29 14:52 | Outpatient (AMB) | payer OTHER, SELFPAY ==
--- NOTE | 2025-06-29 14:46 | A.OFFPC_ITS ---
Intake Visit Reasons: 2 mos adjustment disorder, dyslipidemia Intake Note: patient here for Telehealth follow up for adjustment disorder and dyslipidemia Solar Sales Required: No Allergies No Known Allergies Allergy (Verified 06/29/25 14:58) Medication List - Last Reconciled 06/29/25 by Miguelina Aden CNP levothyroxine (Synthroid) 88 mcg PO DAILY Tobacco use date assessed: 06/29/25 Dental Screening Dental Screen Date: 06/29/25 Did you have a dental visit in the last 12 months?: Yes Did you have a dental problem in the last 6 months where you did not have access to dental care?: No Was dental information given to patient?: Patient has dentist HPI HPI Comments History of Present Illness Details 30-year-old male presents for dyslipidem ia and adjustment disorder follow-up. He admits to making healthy dietary choices and exercising routinely. He notes that he is a little bit anxious, which is normal. He denies depression. No acute symptoms at this time. [facility] Medical History (Updated 03/20/25 @ 12:16 by Miguelina Aden CNP) Depression H/O thyroid disease Asthma Family History (Updated 09/05/24 @ 12:55 by Miriam Gray MA) Paternal Uncle Alcohol abuse Father Mental illness in member of household High blood pressure High cholesterol MDD (major depressive disorder) Diabetes Mother High cholesterol Maternal Grandfather Thyroid disorder Paternal Grandmother Cancer Social History Housing: Apartment Patient Tobacco Use Status: Never used Tobacco e-Cigarette/Vaping Use: Never Used Second Hand Smoke Exposure: No service: No Current occupational status: employed 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 1. Little interest or pleasure in doing things: not at all 2. Feeling down, depressed, or hopeless: several days 3. Trouble falling or staying asleep, or sleeping too much: not at all 4. Feeling tired or having little energy: several days 5. Poor appetite or overeating: several days 6. Feeling bad about yourself - or that you are a failure or have let yourself or your family down: several days 7. Trouble concentrating on things, such as reading the newspaper or watching television: not at all 8. Moving or speaking so slowly that other people could have noticed. Or the opposite - being so fidgety or restless that you have been moving around a lot more than usual: not at all 9. Thoughts that you would be better off or of hurting yourself in some way: not at all Total score: 4 Depression Screening Interpretation: Negative Depression Screening Done: Yes 34919 - PHQ-9 Billing: Yes Source: Developed by Drs. Tian Garza, Frank Gaspar and colleagues, with an educational addi from [employer]. Thrive Questionnaire Date Thrive assessed: 09/05/24 ONEIL-7 AMB Questionnaire ONEIL-7 Date ONEIL - 7 assessed: 06/29/25 Feeling nervous, anxious, or on edge: 1 = Several days Not being able to stop or control worryin = Several days Worrying too much about different things: 0 = Not at all Trouble relaxin = Not at all Being so restless that it is hard to sit still: 0 = Not at all Becoming easily annoyed or irritable: 0 = Not at all Feeling afraid as if something awful might happen: 1 = Several days Total ONEIL-7 score (0-4 normal; 5-9 mild; 10-14 moderate; 15-21 severe): 3 Source: Developed by Drs. Tian Garza, Frank Gaspar and colleagues, with an educational addi from [employer]. ONEIL-7 Assessment Billing ONEIL-7 Assessment Tool: ONEIL-7 Assessment 03131 Physical exam (Primary Care) Tobacco/Smoking Status: Tobacco use Status Tobacco use date assessed 06/29/25 06/29/25 14:48 Patient Tobacco Use Status Never used Tobacco 06/29/25 14:48 e-Cigarette/Vaping Use Never Used 06/29/25 14:48 Depression Screening Interpretation: Negative Thrive Assessment: Date of Thrive Assessment Date Thrive assessed 09/05/24 06/29/25 14:48 Telehealth Telehealth Telehealth Platform: Telephone Location of provider rendering services: practice address Location of patient: address on file Patient Identification confirmed using: Name, : Yes Telehealth method: voice only Patient verbally consented to treatment: Yes Patient verbally consented to billing insurance company: Yes Patient informed of any privacy concerns related to visit: Yes Coding Level of Care Code Tele Est Pt Level 3 (65441) Diagnoses Dyslipidemia E78.5 Adjustment disorder F43.20 Additional Codes ONEIL-7 Assessment Billing - ONEIL-7 Assessment Tool: ONEIL-7 Assessment 97788 ([id number]) PHQ-9 - 24729 - PHQ-9 Billing: Yes ([id number]) Time Spent (min) 15 Assessment & Plan Assessment & Plan (1) Dyslipidemia: Code(s): E78.5 - Hyperlipidemia, unspecified Category: Medical Plan: Recent LDL level is slightly elevated, 127, previous level was 129, HDL level is slightly low, 136, previous level was 35. Advised to limit foods high in saturated fat and avoid foods high in trans fat. Routine exercise encouraged. Fast for 10-12 hours, may drink water, and perform lipid panel blood work a few days before next visit. Follow-up for telehealth visit in 3 months. Return sooner with symptoms or concerns. Verbalized understanding and agreed with the plan. (2) Adjustment disorder: Code(s): F43.20 - Adjustment disorder, unspecified Category: Medical Plan: Notes that he is a little bit anxious, which is normal. He denies depression. PHQ-9 and ONEIL-7 scores are normal. Routine exercise encouraged. Follow-up as needed. Verbalized understanding and agreed with the plan. Orders: Orders Lipid Panel 3 Months E78.5 - Hyperlipidemia, unspecified
== END 2025-06-29 15:19 | disposition home or self-care (01) ==
LOC: HO.HMCFM 14:52
PROVIDERS: PCP Nurse Practitioner Family; Visit Provider Nurse Practitioner Family
DX: E78.5 Hyperlipidemia, unspecified (principal); F43.20 Adjustment disorder, unspecified

== ENCOUNTER → 2025-06-29 14:52 | Outpatient (BNVA) | payer OTHER, SELFPAY | PROVIDERS: PCP Nurse Practitioner Family; Visit Provider Nurse Practitioner Family | DX: E78.5 Hyperlipidemia, unspecified (principal); F43.20 Adjustment disorder, unspecified | CPT/HCPCS: 96127 ==